=== PATIENT | male | born 1965 | race Caucasian/White ===

== ENCOUNTER 2017-07-19 13:11 | Observation (INO) | payer OTHER ==
[~2017-07-19] VITALS: Ht 175.3 cm; Wt 68.9 kg
[2017-07-19 14:15] LABS: BASOPHIL (%) 0.6 % (0-1); EOSINOPHIL (%) 2.6 % (0-5); EOSINOPHIL COUNT 0.1 K/uL (0-0.3); HEMATOCRIT 34.4 % (38.0-50.0); HEMOGLOBIN 12.5 G/DL (12.5-16.6); IMMATURE GRANULOCYTE (%) 0.2 % (0.0-0.7); LYMPHOCYTE (%) 22.2 % (15-42); LYMPHOCYTE COUNT 1.1 K/uL (1.0-2.8); MCH 31.7 PG (29.0-34.0); MCHC 36.3 G/DL (30.0-36.0); MCV 87.3 FL (86-99); MONOCYTE (%) 8.7 % (3-12); MONOCYTE COUNT 0.4 K/uL (0-0.8); NEUTROPHIL (%) 65.7 % (45-76); NEUTROPHIL COUNT 3.3 K/uL (1.8-6.4); PLATELET COUNT 227 K/uL (156-360); RBC DIS.WIDTH-CV 12.4 % (11.8-14.6); RBC DIS.WIDTH-SD 39.8 % (39-53); RED BLOOD COUNT 3.94 M/uL (4.00-5.50); WHITE BLOOD COUNT 5.1 K/uL (4.1-10.2)
[2017-07-19 14:19] LABS: INTER. NORMALIZED RATIO 1.1
[2017-07-19 14:22] LABS: PTT 31.6 SEC (25-37)
[2017-07-19 14:23] LABS: CHLORIDE 107 mEq/L (99-109); POTASSIUM 4.7 mEq/L (3.7-5.4); SODIUM 136 mEq/L (136-147)
[2017-07-19 14:24] LABS: MAGNESIUM 2.4 mg/dL (1.3-2.7)
[2017-07-19 14:25] LABS: GLUCOSE 93 mg/dL (70-99)
[2017-07-19 14:29] LABS: CREATININE 0.9 mg/dL (0.6-1.3)
[2017-07-19 14:30] LABS: GFR ESTIMATE (CALCULATED) > 59 mL/min/ (58.99-99999); UREA NITROGEN (BUN) 14 mg/dL (9-23)
[2017-07-19 14:32] LABS: TROP-I INTERPRETATION NEGATIVE; TROPONIN-I < 0.01 ng/mL (0.0-0.30)
[2017-07-19] MEDS ORDERED: WELLBUTRIN75 MG PO (16:55)
[2017-07-19] MEDS ORDERED: METOPROLOL SUCC25 MG PO (16:56)
[2017-07-19] MEDS ORDERED: LISINOPRIL30 MG PO (16:57)
[2017-07-19] MEDS ORDERED: VENTOLIN HFA18 GM IH (16:58)
[2017-07-19] MEDS ORDERED: LIPITOR80 MG PO (16:58)
[2017-07-19] MEDS ORDERED: PLAVIX75 MG PO (16:58)
[2017-07-19] MEDS ORDERED: OXYMORPHONE HCL30 MG PO (16:59)
[2017-07-19] MEDS ORDERED: NORCO 7.5/321 TABLET PO (17:06)
[2017-07-19 18:37] VITALS: BP 138/79
[2017-07-19 20:42] LABS: TROP-I INTERPRETATION NEGATIVE; TROPONIN-I < 0.01 ng/mL (0.0-0.30)
[2017-07-20 00:05] VITALS: BP 107/57
[2017-07-20 02:58] LABS: TROP-I INTERPRETATION NEGATIVE; TROPONIN-I < 0.01 ng/mL (0.0-0.30)
[2017-07-20 04:10] VITALS: BP 82/47
[2017-07-20 04:57] VITALS: BP 98/52
[2017-07-20 07:15] VITALS: BP 117/57
== END 2017-07-20 08:37 | disposition home or self-care (01) ==
LOC: EME 13:11 → EDOF 15:48 → ENRESERV 15:49 → 5WEST 17:59
PROVIDERS: Emergency Medicine; Family Medicine
DX: R07.9 Chest pain, unspecified (principal); I10 Essential (primary) hypertension; I25.10 Atherosclerotic heart disease of native coronary artery without angina pectoris; Z95.5 Presence of coronary angioplasty implant and graft; Z98.890 Other specified postprocedural states; I70.0 Atherosclerosis of aorta; G89.29 Other chronic pain; M54.9 Dorsalgia, unspecified; E78.5 Hyperlipidemia, unspecified; Z79.82 Long term (current) use of aspirin; Z79.02 Long term (current) use of antithrombotics/antiplatelets; Z88.8 Allergy status to other drugs, medicaments and biological substances; F17.210 Nicotine dependence, cigarettes, uncomplicated; Z82.49 Family history of ischemic heart disease and other diseases of the circulatory system; Z82.3 Family history of stroke
CPT/HCPCS: 71045; 80048; 83735; 84484; 85025; 85379; 85610; 85730; 93005; 99281; 99285; G0378